=== PATIENT | female | born 1955 | race American Indian/Alaskan Native ===

== ENCOUNTER 2017-02-03 06:00 | Inpatient (IN) | payer BC ==
[2014-06-06 10:35] VITALS: BMI 25.0
[2017-02-03] MEDS ORDERED: Bupivacaine Liposomal Inj 20 ml INFIL ONE (07:26)
[2017-02-03] MEDS ORDERED: Bacitracin 150,000 UNIT in Sodium Chloride 0.9% Irrig 3,000 ML IR SCH (07:30)
[2017-02-03] MEDS ORDERED: Tranexamic Acid 100 mg/ml IV SCH (07:30)
--- NOTE | 2017-02-03 07:30 | CP.PCM.HP ---
History of Present Illness - History of Present Illness History of Present Illness: 61F with right hip DJD failed conservative mgmt and elected for THR. No recent illness, no history of bleeding/clotting disorder/CAD/stents/CVA/TIA PMH: RA, HTN, COPD, restless legs, Vit D def PSH: BTL, appendectomy, toe surgery, tonsil NKDA Present on Admission - Present on Admission Any Indicators Present on Admission: No Review of Systems - Review of Systems All systems: reviewed and no additional remarkable complaints except - Musculoskeletal Musculoskeletal: As Per HPI Past Patient History - Past Medical History & Family History Past Medical History?: Yes Past Family History: Reviewed and not pertinent - Past Social History Smoking Status: Never Smoked - CARDIAC Hx Cardiac Disorders: Yes Hx Hypertension: Yes - PULMONARY Hx Respiratory Disorders: Yes Hx Chronic Obstructive Pulmonary Disease (COPD): Yes Hx Sleep Apnea: Yes (c pap setting 3) - NEUROLOGICAL Hx Neurological Disorder: Yes Other/Comment: restless leg syndrome - MUSCULOSKELETAL/RHEUMATOLOGICAL Hx Musculoskeletal Disorders: Yes Hx Back Pain: Yes Hx Herniated Disk: Yes (lumbar) Hx Rheumatoid Arthritis: Yes - GASTROINTESTINAL Hx Gastrointestinal Disorders: Yes - SURGICAL HISTORY Hx Surgeries: Yes Hx Appendectomy: Yes Hx Tubal Ligation: Yes Other/Comment: removal of toenail bilat great toes - ANESTHESIA Hx Anesthesia: Yes Hx Anesthesia Reactions: No Hx Malignant Hyperthermia: No Has any member of the family had a problem w/ anesthesia?: No Meds Allergies/Adverse Reactions: Allergies Allergy/AdvReac Type Severity Reaction Status Date / Time No Known Allergies Allergy Verified 12/10/13 11:44 Physical Exam - Constitutional Appears: Well, No Acute Distress - Expanded Lower Extremities Exam Right Hip exam: normal inspection Knee exam: full ROM, normal inspection Lower Leg Exam: full ROM, normal inspection Ankle exam: FULL ROM, NORMAL INSPECTION Foot/Toe exam: full ROM (5/5 strength DF/PF/knee flex/ext) Neuro vacular tendon exam: no vascular compromise - Neurological Exam Neurological exam: Alert, Oriented x3 - Psychiatric Exam Psychiatric exam: Normal Affect, Normal Mood - Skin Skin Exam: Dry, Intact, Normal Color, Warm Results - Vital Signs Recent Vital Signs: Last Vital Signs Temp 97.4 F L 02/03/17 06:38 Pulse 63 02/03/17 06:38 Resp 20 02/03/17 06:38 BP 148/85 02/03/17 06:38 Pulse Ox 95 02/03/17 06:38 - Labs Result Diagrams: 02/04/17 11:45 02/04/17 11:45 Assessment & Plan (1) Degenerative joint disease of right hip Assessment and Plan: NPO for THR T&S Status: Acute (2) HTN (hypertension) Status: Chronic (3) COPD (chronic obstructive pulmonary disease) Status: Chronic (4) CAROL (obstructive sleep apnea) Status: Chronic (5) GERD (gastroesophageal reflux disease) Status: Chronic Decision To Admit - Pt Status Changed To: Hospital Disposition Of: Inpatient - Admit Certification Admit to Inpatient:: After my assessment, the patient will require hospitalization for at least two midnights. This is because of the severity of symptoms shown, intensity of services needed, and/or the medical risk in this patient being treated as an outpatient. - InPatient: Physician Admission Certification:: After my assessment, the patient will require hospitalization for at least two midnights. This is because of the severity of symptoms shown, intensity of services needed, and/or the medical risk in this patient being treated as an outpatient. - . Bed Request Type: Regular Admitting Physician: Jv Perez
[2017-02-03] MEDS ORDERED: ceFAZolin IV 2 gm in Dextrose 1 GM/50 ML BAG IVPB ONE (07:43)
[2017-02-03] MEDS ORDERED: Lidocaine 2% w Epi 1:100,000 Inj IJ ONE (07:43)
[2017-02-03] MEDS ORDERED: Midazolam 2 MG/2 ML VIAL ONE (07:50)
[2017-02-03] MEDS ORDERED: Propofol 10 mg/ml Inj (20 ML) ONE (07:51)
[2017-02-03] MEDS ORDERED: Lactated Ringer's 1,000 ML IV ONE ×2 (07:55→10:30)
[2017-02-03] MEDS ORDERED: Rocuronium 10 mg/ml (10 ml) ONE (08:06)
[2017-02-03] MEDS ORDERED: Succinylcholine Chloride 20 mg/ml Syr (5 ml) IV ONE (08:06)
[2017-02-03] MEDS ORDERED: Sodium Chloride 0.9% 60 ML IV ONE (09:16)
[2017-02-03] MEDS ORDERED: ePHEDrine 50 mg/ml Inj ONE (10:11)
[2017-02-03] MEDS ORDERED: Lactated Ringer's 1,000 ML IV SCH (11:30)
[2017-02-03] MEDS ORDERED: Oxycodone/Acetaminophen 5/325 mg Tab PO PRN (11:39)
[2017-02-03] MEDS ORDERED: Bisacodyl 5mg EC Tab PO PRN (11:39)
[2017-02-03] MEDS ORDERED: HYDROmorphone 1 mg/ml ISec IVP PRN (11:39)
[2017-02-03] MEDS ORDERED: TIZANIDINE HCL 6 MG PO PRN (11:44)
[2017-02-03] MEDS ORDERED: Sodium Chloride 0.9% 1,000 ML IV SCH (11:45)
[2017-02-03] MEDS ORDERED: HYDROmorphone 0.5 mg/0.5 ml ISec ONE (11:54)
--- NOTE | 2017-02-03 11:54 | PCM.SURG1 ---
Surgeon's Initial Post Op Note - Surgeon's Notes Surgeon: Sharifa Perez MD Data Administrator: Elton Robertson PA-C Type of Anesthesia: General Endo Anesthesia Administered By: Dr. Maria Pre-Operative Diagnosis: Right hip DJD Operative Findings: biomet metallic implant, press fit Post-Operative Diagnosis: same Operation Performed: Right THR Specimen/Specimens Removed: femoral head Estimated Blood Loss: EBL {In ML}: 250 Blood Products Given: N/A Drains Used: No Drains Post-Op Condition: Fair Date of Surgery/Procedure: 02/03/17 Time of Surgery/Procedure: 11:53
[2017-02-03] MEDS: HYDROmorphone 0.5 mg/0.5 ml ISec IVP PRN ×4 (12:01→13:15)
[2017-02-03] MEDS ORDERED: Sodium Chloride 0.9% 1,000 ML IV ONE ×2 (12:11)
--- NOTE | 2017-02-03 13:26 | RAD ---
PROCEDURE: Right Hip Radiographs. HISTORY: pt in pacu s/p thr COMPARISON: Right hip with pelvis 09/10/2015. FINDINGS: BONES: Patient ostomy status post right shoulder replacement with acetabular and femoral prosthetic components in adequate apparent position. The pelvic ring is intact including the pubic symphysis. No suspicious lytic or blastic change. degenerative changes are mild to moderate at the left hip and bilateral sacroiliac joints. JOINTS: As above. SOFT TISSUES: Phlebolith like calcifications in the inferior left pelvic soft tissues. OTHER FINDINGS: None. IMPRESSION: Status post right total replacement as discussed above. No acute fracture subluxation dislocation or suspicious lytic or blastic change in the right hip or pelvic ring.
[2017-02-03] MEDS ORDERED: HYDROmorphone 0.5 mg/0.5 ml ISec IVP PRN (13:31)
[2017-02-03] MEDS: ceFAZolin IV 2 gm in Dextrose 2 GM/100 ML BAG IVPB SCH (17:00)
--- NOTE | 2017-02-03 20:26 | OP ---
PROCEDURE DATE: 02/03/2017 PREOPERATIVE DIAGNOSIS: Right hip osteoarthritis. POSTOPERATIVE DIAGNOSIS: Right hip osteoarthritis. PROCEDURE: Right total hip arthroplasty. SURGEON: Dr. Perez. MANUGRAPHER: Dr. Perez was assisted by Matt Marc, physician assistant engineer. Ms. Marc was scrubbed and present throughout the entire case and assisted with retraction, reduction of the hip as well as wound closure. TYPE OF ANESTHESIA: General. COMPLICATIONS: None. ESTIMATED BLOOD LOSS: 250 mL. IMPLANT: Biomet dual mobility total hip. INDICATIONS FOR THE PROCEDURE: This is a 61-year-old female who presented with complaints of right groin pain. Clinical examination was consistent with some pain with passive internal and external rotation of the hip, some pain resisted hip flexion, mild limb length discrepancy. Radiographic examination was consisted of advanced degenerative joint disease. After a period of failed nonsurgical management, recommendation was made for right total hip arthroplasty. The risks, benefits and alternatives of the procedure were discussed with the patient and informed consent was obtained. DESCRIPTION OF PROCEDURE: After the surgical site was finally verified in the preoperative holding area, the patient was taken to the operating room and placed supine on the operating table. After administration of general anesthesia, the patient received 2 g of Ancef IV. Ramirez catheter was inserted. VA9 boot was placed on the nonoperative extremity. The patient was placed in lateral decubitus position with right hip up towards the ceiling. Care was taken to make sure all bony prominences and nerves were well padded and protected. Axillary roll was placed in the left axilla, and the right lower extremity was prepped and draped in usual sterile fashion. The bony landmarks were identified about the right hip and approximately 12 cm curvilinear incision was made over the proximal femur. Soft tissues were dissected sharply down to the fascia. The fascia was incised and Charnley retractor was placed. Short external rotators were identified, tagged, and resected off of proximal femur. T-type capsulotomy was performed and the hip was dislocated. Based on preoperative templating, a femoral neck resection was performed and the femoral head was removed. At this point, an anterior capsulotomy was performed and the acetabulum was exposed. Acetabulum was then reamed sequentially to allow for 52 mm Pressfit cup. Care was taken to maintain proper acetabular height and version. A trial cup was inserted and satisfied with the position. Trial was removed and the hip joint was pulse lavaged with antibiotic saline solution. The bony surfaces were dried and the actual cup was then impacted to the place. The cup was further fixed using 2 screws in posterior-superior quadrant. At this point, a trial liner was inserted and attention directed to the proximal femur. The medullary canal of the proximal femur was reamed and broached sequentially to allow for 12 mm Pressfit collarless stent. with the trial stem in place, the trial neck and head was placed and hip was reduced. Hip was taken through range of motion, was noted to be stable with approximately equal limb length. At this point, all the trial components were removed and the hip joint was pulse lavaged. The actual bearing was then inserted and the actual stem was then inserted again making sure to maintain the proper version. The actual head was then impacted over the stem and the hip was reduced. Again, the hip was taken through range of motion and was noted to be stable with approximately equal limb lengths. At this point, the hip joint was again pulse lavaged and using #1 Vicryl suture. The short external rotator was also repaired using #1 Vicryl suture. The deep fascia was closed using #1 Vicryl suture. The subcutaneous tissue was closed using 0 Vicryl and 2-0 Vicryl suture and the skin was closed using abisai. A sterile dressing was applied and abduction pillow was placed. The patient was awakened, transferred supine, and taken to the recovery room in stable condition. Jv Perez MD
[2017-02-04] MEDS: ceFAZolin IV 2 gm in Dextrose 2 GM/100 ML BAG IVPB SCH (00:33)
[2017-02-04] MEDS ORDERED: Fluticasone-Salmeterol 250-50mcg Diskus IH SCH (08:00)
[2017-02-04] MEDS ORDERED: Enoxaparin 40 mg Syringe SC SCH (10:00)
[2017-02-04] MEDS: Pantoprazole 40 mg EC Tab PO SCH (10:27)
[2017-02-04] MEDS: Potassium Chloride 10 mEq ER Tab PO SCH (10:27)
--- NOTE | 2017-02-04 11:00 | CP.PCM.PN ---
Subjective - Date & Time of Evaluation Date of Evaluation: 02/04/17 Time of Evaluation: 10:59 - Subjective Subjective: Pt awake, alert. Pt sitting in chair. Afebrile R hip: dressing intact NVI distally POD#1 Labs pending DVT prophylaxis D/c planning Objective - Vital Signs/Intake and Output Vital Signs (last 24 hours): Temp Pulse Resp BP Pulse Ox 98.8 F 80 18 127/71 98 02/04/17 07:25 02/04/17 07:25 02/04/17 07:25 02/04/17 10:26 02/04/17 07:25 Intake and Output: 02/04/17 02/04/17 06:59 18:59 Intake Total 1510 Output Total 1000 Balance 510 - Medications Medications: Current Medications Acetaminophen (Tylenol 325mg Tab) 650 mg PO Q4 PRN PRN Reason: Fever 101 degrees fahrenheit Bisacodyl (Dulcolax) 10 mg PO HS PRN PRN Reason: Constipation Clonidine HCl (Catapres) 0.1 mg PO TID [facility] Last Admin: 02/04/17 10:27 Dose: 0.1 mg Docusate Sodium (Colace) 100 mg PO BID [facility] Last Admin: 02/04/17 10:26 Dose: 100 mg Enoxaparin Sodium (Lovenox) 40 mg SC DAILY [facility] Last Admin: 02/04/17 10:25 Dose: 40 mg Ergocalciferol (Drisdol 50,000 Intl Units Cap) 1 cap PO QWK [facility] Folic Acid (Folic Acid) 1 mg PO DAILY [facility] Last Admin: 02/04/17 10:27 Dose: 1 mg Furosemide (Lasix) 40 mg PO DAILY [facility] Last Admin: 02/04/17 10:26 Dose: 40 mg Hydromorphone HCl (Dilaudid) 1 mg IVP Q3H PRN PRN Reason: Pain, severe (8-10) Last Admin: 02/04/17 10:11 Dose: 1 mg Lactated Ringer's (Lactated Ringer's) 1,000 mls @ 100 mls/hr IV .Q10H [facility] Sodium Chloride (Sodium Chloride 0.9%) 1,000 mls @ 70 mls/hr IV .[id number] [facility] Last Admin: 02/04/17 01:35 Dose: 70 mls/hr Losartan Potassium (Cozaar) 100 mg PO DAILY [facility] Last Admin: 02/04/17 10:26 Dose: 100 mg Ondansetron HCl (Zofran Inj) 4 mg IVP Q6H PRN PRN Reason: Nausea/Vomiting Oxycodone/Acetaminophen (Percocet 5/325 Mg Tab) 2 tab PO Q4H PRN PRN Reason: Pain, moderate (4-7) Stop: 02/06/17 11:40 Pantoprazole Sodium (Protonix Ec Tab) 40 mg PO DAILY [facility] Last Admin: 02/04/17 10:27 Dose: 40 mg Potassium Chloride (Klor-Con 10) 10 meq PO DAILY [facility] Last Admin: 02/04/17 10:27 Dose: 10 meq Pramipexole Dihydrochloride (Mirapex) 0.25 mg PO TID [facility] Pregabalin (Lyrica) 75 mg PO TID [facility] Last Admin: 02/04/17 10:26 Dose: 75 mg Fluticasone/Salmeterol (Advair Diskus 250/50) 1 puff IH RBID [facility]
[2017-02-04 11:55] LABS: HEMATOCRIT 31.3 % (34.0-47.0); MEAN CELL VOLUME 90.3 fL (81.0-99.0); MEAN CORPUSCULAR HEMOGLOBIN 30.3 pg (27.0-31.0); MEAN CORPUSCULAR HGB CONC 33.5 g/dL (33.0-37.0); MEAN PLATELET VOLUME 10.2 fL (7.2-11.7); RED CELL DISTRIBUTION WIDTH 13.3 % (11.5-14.5)
[2017-02-04 12:04] LABS: WHITE BLOOD COUNT 17.9 K/uL (4.8-10.8)
[2017-02-04 12:27] LABS: CHLORIDE 100 mmol/L (98-107); POTASSIUM 3.5 mmol/L (3.6-5.2); SODIUM 135 mmol/L (132-148)
[2017-02-04 12:30] LABS: CARBON DIOXIDE 25 mmol/L (22-30); GFR AFRICAN-AMERICAN > 60
[2017-02-04 12:31] LABS: BLOOD UREA NITROGEN 10 mg/dL (7-17); CALCIUM 8.5 mg/dl (8.6-10.4); GLUCOSE,RANDOM 113 mg/dL (65-105)
--- NOTE | 2017-02-04 14:40 | CP.PCM.PN ---
Subjective - Date & Time of Evaluation Date of Evaluation: 02/04/17 Time of Evaluation: 14:36 - Subjective Subjective: Patient states she is comfortable. Little appetite. She refuses rehab and requests home with services. Patient has 8 stairs into home and lives with sig other. Denies CP/SOB/dizziness/n/v/numbness/tingling. Objective - Vital Signs/Intake and Output Vital Signs (last 24 hours): Temp Pulse Resp BP Pulse Ox 98.8 F 79 18 127/71 100 02/04/17 07:25 02/04/17 11:48 02/04/17 07:25 02/04/17 10:26 02/04/17 11:48 Intake and Output: 02/04/17 02/04/17 06:59 18:59 Intake Total 1510 Output Total 1000 Balance 510 - Medications Medications: Current Medications Acetaminophen (Tylenol 325mg Tab) 650 mg PO Q4 PRN PRN Reason: Fever 101 degrees fahrenheit Bisacodyl (Dulcolax) 10 mg PO HS PRN PRN Reason: Constipation Clonidine HCl (Catapres) 0.1 mg PO TID [facility] Last Admin: 02/04/17 10:27 Dose: 0.1 mg Docusate Sodium (Colace) 100 mg PO BID [facility] Last Admin: 02/04/17 10:26 Dose: 100 mg Enoxaparin Sodium (Lovenox) 40 mg SC DAILY [facility] Last Admin: 02/04/17 10:25 Dose: 40 mg Ergocalciferol (Drisdol 50,000 Intl Units Cap) 1 cap PO QWK [facility] Folic Acid (Folic Acid) 1 mg PO DAILY [facility] Last Admin: 02/04/17 10:27 Dose: 1 mg Furosemide (Lasix) 40 mg PO DAILY [facility] Last Admin: 02/04/17 10:26 Dose: 40 mg Hydromorphone HCl (Dilaudid) 1 mg IVP Q3H PRN PRN Reason: Pain, severe (8-10) Last Admin: 02/04/17 10:11 Dose: 1 mg Losartan Potassium (Cozaar) 100 mg PO DAILY [facility] Last Admin: 02/04/17 10:26 Dose: 100 mg Ondansetron HCl (Zofran Inj) 4 mg IVP Q6H PRN PRN Reason: Nausea/Vomiting Oxycodone/Acetaminophen (Percocet 5/325 Mg Tab) 2 tab PO Q4H PRN PRN Reason: Pain, moderate (4-7) Stop: 02/06/17 11:40 Pantoprazole Sodium (Protonix Ec Tab) 40 mg PO DAILY [facility] Last Admin: 02/04/17 10:27 Dose: 40 mg Potassium Chloride (Klor-Con 10) 10 meq PO DAILY [facility] Last Admin: 02/04/17 10:27 Dose: 10 meq Pramipexole Dihydrochloride (Mirapex) 0.25 mg PO TID [facility] Pregabalin (Lyrica) 75 mg PO TID [facility] Last Admin: 02/04/17 10:26 Dose: 75 mg Fluticasone/Salmeterol (Advair Diskus 250/50) 1 puff IH RBID [facility] - Labs Labs: 02/04/17 11:45 02/04/17 11:45 - Constitutional Appears: Well, No Acute Distress - Extremities Exam Extremities Exam: Full ROM Additional comments: calves soft NT neg homans dressing intact no visible drainage sensation intact RLE +venodynes +hip abduction pillow - Neurological Exam Neurological Exam: Awake, Oriented x3 Neuro motor strength exam: Right Lower Extremity: 5 Additional comments: patient drowsy, easily awakened but falls back to sleep immediately - Psychiatric Exam Psychiatric exam: Normal Affect, Normal Mood - Skin Skin Exam: Dry, Intact, Normal Color, Warm Assessment and Plan (1) Degenerative joint disease of right hip Assessment & Plan: POD#1 s/p R THR -PT/OT -elevated WBC, check am labs, afeb -monitor h/h -d/c planning to home with home PT -VTE proph -will decrease dilaudid due to sedation, continue percocet breakthrough -d/w Dr. Perez, agrees with above Status: Acute (2) HTN (hypertension) Assessment & Plan: cont home meds medical consult Dr. Ziegler Status: Chronic (3) COPD (chronic obstructive pulmonary disease) Status: Chronic (4) CAROL (obstructive sleep apnea) Status: Chronic (5) GERD (gastroesophageal reflux disease) Status: Chronic
[2017-02-05 06:42] LABS: HEMATOCRIT 29.7 % (34.0-47.0); MEAN CORPUSCULAR HGB CONC 34.5 g/dL (33.0-37.0); MEAN PLATELET VOLUME 10.6 fL (7.2-11.7); RED CELL DISTRIBUTION WIDTH 13.2 % (11.5-14.5); WHITE BLOOD COUNT 20.9 K/uL (4.8-10.8)
[2017-02-05 07:54] LABS: CHLORIDE 105 mmol/L (98-107); POTASSIUM 3.6 mmol/L (3.6-5.2); SODIUM 137 mmol/L (132-148)
[2017-02-05 07:57] LABS: BLOOD UREA NITROGEN 13 mg/dL (7-17); CALCIUM 8.9 mg/dl (8.6-10.4); CARBON DIOXIDE 23 mmol/L (22-30); GFR AFRICAN-AMERICAN > 60; GLUCOSE,RANDOM 100 mg/dL (65-105)
[2017-02-05] MEDS ORDERED: ceFAZolin IV 1 gm in Dextrose 1 GM/50 ML BAG IVPB SCH (08:00)
--- NOTE | 2017-02-05 08:00 | CP.PCM.PN ---
Subjective - Date & Time of Evaluation Date of Evaluation: 02/05/17 Time of Evaluation: 07:57 - Subjective Subjective: Pt awake, alert. T max 101 R hip: dressing changed clean and dry NVI distally Hg 10.3 WBC 20.9 POD#2 Will send blood and urine cultures CXR hold off on d/c today cont PT Objective - Vital Signs/Intake and Output Vital Signs (last 24 hours): Temp Pulse Resp BP Pulse Ox 98.8 F 83 20 119/72 95 02/05/17 01:16 02/04/17 23:15 02/04/17 23:15 02/04/17 23:15 02/04/17 23:15 Intake and Output: 02/05/17 02/05/17 06:59 18:59 Intake Total 150 Balance 150 - Medications Medications: Current Medications Acetaminophen (Tylenol 325mg Tab) 650 mg PO Q4 PRN PRN Reason: Fever 101 degrees fahrenheit Last Admin: 02/05/17 00:16 Dose: 650 mg Apixaban (Eliquis) 2.5 mg PO Q12H [facility] Bisacodyl (Dulcolax) 10 mg PO HS PRN PRN Reason: Constipation Clonidine HCl (Catapres) 0.1 mg PO TID [facility] Last Admin: 02/04/17 17:59 Dose: Not Given Docusate Sodium (Colace) 100 mg PO BID [facility] Last Admin: 02/04/17 18:45 Dose: Not Given Ergocalciferol (Drisdol 50,000 Intl Units Cap) 1 cap PO QWK [facility] Folic Acid (Folic Acid) 1 mg PO DAILY [facility] Last Admin: 02/04/17 10:27 Dose: 1 mg Furosemide (Lasix) 40 mg PO DAILY [facility] Last Admin: 02/04/17 10:26 Dose: 40 mg Hydromorphone HCl (Dilaudid) 0.5 mg IVP Q3H PRN PRN Reason: Pain, severe (8-10) Losartan Potassium (Cozaar) 100 mg PO DAILY [facility] Last Admin: 02/04/17 10:26 Dose: 100 mg Ondansetron HCl (Zofran Inj) 4 mg IVP Q6H PRN PRN Reason: Nausea/Vomiting Oxycodone/Acetaminophen (Percocet 5/325 Mg Tab) 2 tab PO Q4H PRN PRN Reason: Pain, moderate (4-7) Stop: 02/06/17 11:40 Pantoprazole Sodium (Protonix Ec Tab) 40 mg PO DAILY [facility] Last Admin: 02/04/17 10:27 Dose: 40 mg Potassium Chloride (Klor-Con 10) 10 meq PO DAILY [facility] Last Admin: 02/04/17 10:27 Dose: 10 meq Pramipexole Dihydrochloride (Mirapex) 0.25 mg PO TID [facility] Last Admin: 02/04/17 18:45 Dose: Not Given Pregabalin (Lyrica) 75 mg PO TID [facility] Last Admin: 02/04/17 18:45 Dose: Not Given Fluticasone/Salmeterol (Advair Diskus 250/50) 1 puff IH RBID [facility] - Labs Labs: 02/05/17 06:20 02/05/17 06:20
[2017-02-05] MEDS: HYDROmorphone 0.5 mg/0.5 ml ISec IVP PRN ×2 (09:09→16:55)
--- NOTE | 2017-02-05 10:02 | RAD ---
HISTORY: leukocytosis COMPARISON: 01/07/2017 TECHNIQUE: Chest PA and lateral FINDINGS: LUNGS: Interval linear and patchy opacity -left lung base -consider interval developing infiltrate PLEURA: No significant pleural effusion identified. No pneumothorax apparent. CARDIOVASCULAR: Normal. OSSEOUS STRUCTURES: No significant abnormalities. VISUALIZED UPPER ABDOMEN: Normal. OTHER FINDINGS: None. IMPRESSION: Possible developing patchy infiltrate left lung base - at minimum, linear discoid atelectasis and/ or scarring components here suggested.
--- NOTE | 2017-02-05 10:04 | PN ---
DATE: 02/04/2017 SUBJECTIVE: Patient is seen today on 02/04/2017. She is not in any cardiopulmonary distress. Patient still has pain and she is on pain management as per Orthopedic. PHYSICAL EXAMINATION: VITAL SIGNS: Blood pressure is 96/61, temperature 98.4, respiratory rate 20, and pulse 65. HEENT: Pupils equal and reactive to light. Normal appearing mucosa of the conjunctivae, oropharynx and nasal membrane mucosa. NECK: Supple. No JVD. No carotid bruit. No lymph node. No thyromegaly. CHEST AND LUNGS: Bilateral symmetrical expansion. Good air exchange. No rales. No rhonchi. CARDIOVASCULAR SYSTEM: PMI not localized. S1 and S2. No additional sounds. ABDOMEN: Normoactive bowel sounds. No tenderness. No organomegaly. No masses. EXTREMITIES: No cyanosis. No clubbing. No edema. CENTRAL NERVOUS SYSTEM: Alert, awake, and oriented x3. No neurological deficits could be appreciated. ASSESSMENT: Postoperative day #1, status post right total hip replacement, hypertension, osteoarthritis, history of rheumatoid arthritis. PLAN: Continue current medications and DVT prophylaxis will be started once cleared by Surgery. Physical therapy and patient is desiring to go home for rehabilitation. Reagan Ziegler MD
[2017-02-05] MEDS: Potassium Chloride 10 mEq ER Tab PO SCH (10:13)
[2017-02-05] MEDS: Pantoprazole 40 mg EC Tab PO SCH (10:15)
--- NOTE | 2017-02-05 10:15 | CON ---
DATE: HISTORY OF PRESENT ILLNESS: This is a 61 years old -[place] female with history of multiple medical problems, underwent right total hip replacement. Patient was seen postoperatively. Medical consultation was called for medical management and medical followup. Patient denied to have any chest pain or shortness of breath. No respiratory distress. ALLERGIES: No known allergies. HOME MEDICATIONS: Include Lyrica, methotrexate, folic acid, Nexium, clonidine, Mirapex, Cozaar, Lasix, Zanaflex. PAST MEDICAL HISTORY: Hypertension, rheumatoid arthritis, gastritis/gastroesophageal reflux disease. FAMILY HISTORY: Noncontributory. SOCIAL HISTORY: Denies smoking, EtOH or substance abuse. REVIEW OF SYSTEMS: All other review of systems is negative. PHYSICAL EXAMINATION: GENERAL: Patient is in bed, comfortable, not in any cardiopulmonary distress. VITAL SIGNS: Blood pressure 114/76, temperature 97.1, respiratory rate 20 and pulse 66. HEENT: Pupils equal and reactive to light. Normal-appearing mucosa of the conjunctivae, oropharynx and nasal membrane mucosa. NECK: Supple. No JVD. No carotid bruit. No lymph node. No thyromegaly. CHEST AND LUNGS: Bilaterally symmetrical expansion. Good air exchange. No rales. No rhonchi. CARDIOVASCULAR SYSTEM: PMI not localized. S1 and S2. No additional sounds. ABDOMEN: Normoactive bowel sounds. No tenderness. No organomegaly. No masses. EXTREMITIES: No cyanosis. No clubbing. No edema. CENTRAL NERVOUS SYSTEM: Alert, awake, and oriented x2. No neurological deficits could be appreciated. ASSESSMENT: 1. Postoperative, status post right total hip replacement. 2. History of rheumatoid arthritis. 3. Hypertension. PLAN: Resume patient's home medications and DVT prophylaxis as per Orthopedics. We will monitor electrolytes and blood count and we will follow up with you. Reagan Ziegler MD
[2017-02-05] MEDS: Piperacillin/Tazobact 3.375 GM in Sodium Chloride 100 ML IVPB SCH ×2 (14:02→17:55)
[2017-02-05 17:09] LABS: RBC URINE 5 /hpf (0-3); TRANSITIONAL EPITHIAL < 1 /hpf (0-3); URINE BACTERIA OCC (<OCC); URINE BILIRUBIN NEGATIVE (NEGATIVE); URINE COLOR Yellow (YELLOW); URINE GLUCOSE (UA) NORMAL (Normal); URINE KETONE TRACE mg/dL (NEGATIVE); URINE LEUKOCYTE ESTERASE 3+ Leu/uL (Negative); URINE PROTEIN NEGATIVE (NEGATIVE); URINE UROBILINOGEN NORMAL mg/dL (0.2-1.0); WBC URINE 35 /hpf (0-5)
[2017-02-05 17:28] LABS: URINE BLOOD 1+ (NEGATIVE)
--- NOTE | 2017-02-05 17:59 | CP.PCM.PN ---
Subjective - Date & Time of Evaluation Date of Evaluation: 02/05/17 (patient stable no issues) Time of Evaluation: 18:00 - Subjective Subjective: Stable vitals, no nausea, no recall uneventful anesthesia. Pain management by otho Objective - Vital Signs/Intake and Output Vital Signs (last 24 hours): Temp Pulse Resp BP Pulse Ox 100.2 F H 89 20 116/71 96 02/05/17 15:00 02/05/17 15:00 02/05/17 15:00 02/05/17 15:00 02/05/17 15:00 Intake and Output: 02/05/17 02/05/17 06:59 18:59 Intake Total 150 550 Balance 150 550 - Medications Medications: Current Medications Acetaminophen (Tylenol 325mg Tab) 650 mg PO Q4 PRN PRN Reason: Fever 101 degrees fahrenheit Last Admin: 02/05/17 00:16 Dose: 650 mg Apixaban (Eliquis) 2.5 mg PO Q12H [facility] Last Admin: 02/05/17 11:00 Dose: 2.5 mg Bisacodyl (Dulcolax) 10 mg PO HS PRN PRN Reason: Constipation Clonidine HCl (Catapres) 0.1 mg PO TID [facility] Last Admin: 02/05/17 14:09 Dose: Not Given Docusate Sodium (Colace) 100 mg PO BID [facility] Last Admin: 02/05/17 17:56 Dose: 100 mg Ergocalciferol (Drisdol 50,000 Intl Units Cap) 1 cap PO QWK [facility] Folic Acid (Folic Acid) 1 mg PO DAILY [facility] Last Admin: 02/05/17 10:15 Dose: 1 mg Furosemide (Lasix) 40 mg PO DAILY [facility] Last Admin: 02/05/17 10:13 Dose: 40 mg Hydromorphone HCl (Dilaudid) 0.5 mg IVP Q3H PRN PRN Reason: Pain, severe (8-10) Last Admin: 02/05/17 16:55 Dose: 0.5 mg Piperacillin Sod/Tazobactam (Sod 3.375 gm/ Sodium Chloride) 100 mls @ 100 mls/ hr IVPB Q6H [facility] Last Admin: 02/05/17 17:55 Dose: 100 mls/hr Losartan Potassium (Cozaar) 100 mg PO DAILY [facility] Last Admin: 02/05/17 10:15 Dose: 100 mg Ondansetron HCl (Zofran Inj) 4 mg IVP Q6H PRN PRN Reason: Nausea/Vomiting Oxycodone/Acetaminophen (Percocet 5/325 Mg Tab) 2 tab PO Q4H PRN PRN Reason: Pain, moderate (4-7) Stop: 02/06/17 11:40 Pantoprazole Sodium (Protonix Ec Tab) 40 mg PO DAILY [facility] Last Admin: 02/05/17 10:15 Dose: 40 mg Potassium Chloride (Klor-Con 10) 10 meq PO DAILY [facility] Last Admin: 02/05/17 10:13 Dose: 10 meq Pramipexole Dihydrochloride (Mirapex) 0.25 mg PO TID [facility] Last Admin: 02/05/17 17:57 Dose: 0.25 mg Pregabalin (Lyrica) 75 mg PO TID [facility] Last Admin: 02/05/17 17:56 Dose: 75 mg Fluticasone/Salmeterol (Advair Diskus 250/50) 1 puff IH RBID [facility] - Labs Labs: 02/05/17 06:20 02/05/17 06:20
[2017-02-06] MEDS: Piperacillin/Tazobact 3.375 GM in Sodium Chloride 100 ML IVPB SCH ×4 (00:19→18:07)
--- NOTE | 2017-02-06 02:03 | PN ---
DAILY PROGRESS NOTE DATE: 02/05/2017 SUBJECTIVE: The patient is seen today. She still has pain on the right hip surgery area. The patient has mild fever with temperature of 100.3 and a chest x ray showed possible developing left lower lobe infiltrate. The patient also was found to have leukocytosis as it went up from 17,000 to 20,000. PHYSICAL EXAMINATION: VITAL SIGNS: Blood pressure is 109/59, temperature 100.3, respiratory rate 20 and pulse is 89. HEENT: Pupils equal, reactive to light. Normal appearing mucosa of the conjunctivae, oropharynx and nasal membrane mucosa. NECK: Supple. No JVD. No carotid bruit. No lymph node. No thyromegaly. CHEST AND LUNGS: Bilateral symmetrical expansion. Good air exchange. No rales. No rhonchi. CARDIOVASCULAR SYSTEM: PMI not localized. S1 and S2. No additional sounds. ABDOMEN: Normoactive bowel sounds. No tenderness. No organomegaly. No masses. EXTREMITIES: No cyanosis. No clubbing. No edema. CENTRAL NERVOUS SYSTEM: Alert, awake, and oriented x2. No neurological deficits could be appreciated. ASSESSMENT: 1. Developing left lower lobe infiltrate. 2. Postoperative day #2, status post right total hip replacement. 3. Hypertension. PLAN: Stop Ancef and we will start the patient on Zosyn 3.375 gram q. 6 hours. Reagan Ziegler MD
[2017-02-06] MEDS: HYDROmorphone 0.5 mg/0.5 ml ISec IVP PRN (05:01)
[2017-02-06 06:38] LABS: BASO % 0.2 % (0.0-2.0); EOS # 0.1 K/uL (0.0-0.7); EOS % 0.6 % (0.0-4.0); HEMATOCRIT 25.4 % (34.0-47.0); LYMPH # 1.2 K/uL (1.0-4.3); LYMPH % 7.3 % (20.0-40.0); MEAN CORPUSCULAR HEMOGLOBIN 30.7 pg (27.0-31.0); MEAN CORPUSCULAR HGB CONC 34.4 g/dL (33.0-37.0); MEAN PLATELET VOLUME 9.7 fL (7.2-11.7); MONO # 1.2 K/uL (0.0-0.8); PLATELET COUNT 203 K/uL (130-400); RED CELL DISTRIBUTION WIDTH 13.2 % (11.5-14.5); WHITE BLOOD COUNT 16.7 K/uL (4.8-10.8)
[2017-02-06 07:16] LABS: CHLORIDE 102 mmol/L (98-107); POTASSIUM 3.3 mmol/L (3.6-5.2); SODIUM 136 mmol/L (132-148)
[2017-02-06 07:19] LABS: CARBON DIOXIDE 25 mmol/L (22-30); GFR AFRICAN-AMERICAN > 60
[2017-02-06 07:20] LABS: BLOOD UREA NITROGEN 13 mg/dL (7-17); CALCIUM 8.3 mg/dl (8.6-10.4); GLUCOSE,RANDOM 115 mg/dL (65-105)
[2017-02-06] MEDS ORDERED: Potassium Chloride 20 mEq ER Tab PO ONE (07:58)
[2017-02-06 08:44] LABS: GIANT PLATELETS PRESENT; NEUTROPHIL 90 % (50-75); TOTAL CELLS COUNTED 100
[2017-02-06] MEDS: Potassium Chloride 10 mEq ER Tab PO SCH (09:54)
[2017-02-06] MEDS: Pantoprazole 40 mg EC Tab PO SCH (09:54)
--- NOTE | 2017-02-06 10:18 | CP.PCM.PN ---
Subjective - Date & Time of Evaluation Date of Evaluation: 02/06/17 Time of Evaluation: 10:13 - Subjective Subjective: Patient states she is feeling much better today. She says that pain is controlled, and she felt a little dizzy with PT, but is better now. Objective - Vital Signs/Intake and Output Vital Signs (last 24 hours): Temp Pulse Resp BP Pulse Ox 98.1 F 72 18 99/52 L 96 02/06/17 07:20 02/06/17 07:20 02/06/17 07:20 02/06/17 09:55 02/06/17 07:20 Intake and Output: 02/06/17 02/06/17 06:59 18:59 Intake Total 658 Balance 658 - Medications Medications: Current Medications Acetaminophen (Tylenol 325mg Tab) 650 mg PO Q4 PRN PRN Reason: Fever 101 degrees fahrenheit Last Admin: 02/05/17 00:16 Dose: 650 mg Apixaban (Eliquis) 2.5 mg PO Q12H [facility] Last Admin: 02/06/17 09:53 Dose: 2.5 mg Bisacodyl (Dulcolax) 10 mg PO HS PRN PRN Reason: Constipation Clonidine HCl (Catapres) 0.1 mg PO TID [facility] Last Admin: 02/06/17 09:55 Dose: Not Given Docusate Sodium (Colace) 100 mg PO BID [facility] Last Admin: 02/06/17 09:53 Dose: 100 mg Ergocalciferol (Drisdol 50,000 Intl Units Cap) 1 cap PO QWK [facility] Folic Acid (Folic Acid) 1 mg PO DAILY [facility] Last Admin: 02/06/17 09:54 Dose: 1 mg Furosemide (Lasix) 40 mg PO DAILY [facility] Last Admin: 02/06/17 09:55 Dose: Not Given Piperacillin Sod/Tazobactam (Sod 3.375 gm/ Sodium Chloride) 100 mls @ 100 mls/ hr IVPB Q6H [facility] Last Admin: 02/06/17 05:41 Dose: 100 mls/hr Losartan Potassium (Cozaar) 100 mg PO DAILY [facility] Last Admin: 02/06/17 09:55 Dose: Not Given Ondansetron HCl (Zofran Inj) 4 mg IVP Q6H PRN PRN Reason: Nausea/Vomiting Oxycodone/Acetaminophen (Percocet 5/325 Mg Tab) 2 tab PO Q4H PRN PRN Reason: Pain, moderate (4-7) Stop: 02/06/17 11:40 Last Admin: 02/06/17 05:59 Dose: 2 tab Pantoprazole Sodium (Protonix Ec Tab) 40 mg PO DAILY [facility] Last Admin: 02/06/17 09:54 Dose: 40 mg Potassium Chloride (Klor-Con 10) 10 meq PO DAILY [facility] Last Admin: 02/06/17 09:54 Dose: 10 meq Pramipexole Dihydrochloride (Mirapex) 0.25 mg PO TID [facility] Last Admin: 02/06/17 09:56 Dose: 0.25 mg Pregabalin (Lyrica) 75 mg PO TID [facility] Last Admin: 02/06/17 09:52 Dose: 75 mg Fluticasone/Salmeterol (Advair Diskus 250/50) 1 puff IH RBID [facility] - Labs Labs: 02/06/17 06:30 02/06/17 06:30 - Constitutional Appears: Well, No Acute Distress - Extremities Exam Additional comments: incision clean/dry/no erythema +ROM ankle/toes sensation intact +DP/PT pulses calves soft NT neg homans Assessment and Plan (1) Degenerative joint disease of right hip Assessment & Plan: POD#3 s/p right THR -WBC lower today -UTI noted on u/a, ?developing LLL infiltrate, on zosyn -f/u blood cx, urine cx -plan for d/c to home 02/07 if continues to improve and cx negative -home PT -cont VTE proph with vannessa -d/w Dr. Perez, agrees with above Status: Acute (2) HTN (hypertension) Assessment & Plan: antihypertensives held today due to bp Status: Chronic (3) COPD (chronic obstructive pulmonary disease) Status: Chronic (4) CAROL (obstructive sleep apnea) Status: Chronic (5) GERD (gastroesophageal reflux disease) Status: Chronic (6) UTI (urinary tract infection) Assessment & Plan: on zosyn, f/u cx Status: Acute
[2017-02-07] MEDS: Piperacillin/Tazobact 3.375 GM in Sodium Chloride 100 ML IVPB SCH ×4 (00:37→17:46)
[2017-02-07 08:02] LABS: BASO % 0.3 % (0.0-2.0); EOS # 0.5 K/uL (0.0-0.7); EOS % 5.2 % (0.0-4.0); HEMATOCRIT 26.1 % (34.0-47.0); LYMPH # 1.6 K/uL (1.0-4.3); LYMPH % 15.8 % (20.0-40.0); MEAN CELL VOLUME 89.9 fL (81.0-99.0); MEAN CORPUSCULAR HEMOGLOBIN 30.7 pg (27.0-31.0); MEAN CORPUSCULAR HGB CONC 34.2 g/dL (33.0-37.0); MEAN PLATELET VOLUME 9.7 fL (7.2-11.7); MONO # 0.9 K/uL (0.0-0.8); MONO % 8.3 % (0.0-10.0); RED CELL DISTRIBUTION WIDTH 13.6 % (11.5-14.5); WHITE BLOOD COUNT 10.3 K/uL (4.8-10.8)
[2017-02-07 08:27] LABS: CHLORIDE 100 mmol/L (98-107); POTASSIUM 3.8 mmol/L (3.6-5.2); SODIUM 135 mmol/L (132-148)
[2017-02-07 08:29] LABS: GFR AFRICAN-AMERICAN > 60
[2017-02-07 08:30] LABS: BLOOD UREA NITROGEN 15 mg/dL (7-17); CARBON DIOXIDE 27 mmol/L (22-30); GLUCOSE,RANDOM 107 mg/dL (65-105)
[2017-02-07 08:31] LABS: CALCIUM 8.7 mg/dl (8.6-10.4)
[2017-02-07] MEDS: Potassium Chloride 10 mEq ER Tab PO SCH (09:45)
[2017-02-07] MEDS: Pantoprazole 40 mg EC Tab PO SCH (09:46)
--- NOTE | 2017-02-07 16:20 | CP.PCM.PN ---
Subjective - Date & Time of Evaluation Date of Evaluation: 02/07/17 Time of Evaluation: 16:18 - Subjective Subjective: Pt doing well. Adequate pain control. Afebrile,VSS R hip: dressing clean and intact NVI distally Abduction pillow in place WBC 10 POD#4 Pt to have 2 more days of IV antibiotics for pneumonia. Plan will be to d/c pt home Thursday with PO antibiotics cont PT, Eliquis Objective - Vital Signs/Intake and Output Vital Signs (last 24 hours): Temp Pulse Resp BP Pulse Ox 98.6 F 62 20 103/99 H 99 02/07/17 15:08 02/07/17 15:08 02/07/17 15:08 02/07/17 15:08 02/07/17 15:08 Intake and Output: 02/07/17 02/07/17 06:59 18:59 Intake Total 500 Balance 500 - Medications Medications: Current Medications Acetaminophen (Tylenol 325mg Tab) 650 mg PO Q4 PRN PRN Reason: Fever 101 degrees fahrenheit Last Admin: 02/05/17 00:16 Dose: 650 mg Apixaban (Eliquis) 2.5 mg PO Q12H [facility] Last Admin: 02/07/17 09:46 Dose: 2.5 mg Bisacodyl (Dulcolax) 10 mg PO HS PRN PRN Reason: Constipation Clonidine HCl (Catapres) 0.1 mg PO TID [facility] Last Admin: 02/07/17 13:33 Dose: Not Given Docusate Sodium (Colace) 100 mg PO BID [facility] Last Admin: 02/07/17 09:45 Dose: 100 mg Ergocalciferol (Drisdol 50,000 Intl Units Cap) 1 cap PO QWK [facility] Folic Acid (Folic Acid) 1 mg PO DAILY [facility] Last Admin: 02/07/17 09:45 Dose: 1 mg Furosemide (Lasix) 40 mg PO DAILY [facility] Last Admin: 02/07/17 09:46 Dose: 40 mg Piperacillin Sod/Tazobactam (Sod 3.375 gm/ Sodium Chloride) 100 mls @ 100 mls/ hr IVPB Q6H [facility] Last Admin: 02/07/17 13:00 Dose: 100 mls/hr Losartan Potassium (Cozaar) 100 mg PO DAILY [facility] Last Admin: 02/07/17 09:46 Dose: 100 mg Ondansetron HCl (Zofran Inj) 4 mg IVP Q6H PRN PRN Reason: Nausea/Vomiting Pantoprazole Sodium (Protonix Ec Tab) 40 mg PO DAILY [facility] Last Admin: 02/07/17 09:46 Dose: 40 mg Potassium Chloride (Klor-Con 10) 10 meq PO DAILY [facility] Last Admin: 02/07/17 09:45 Dose: 10 meq Pramipexole Dihydrochloride (Mirapex) 0.25 mg PO TID [facility] Last Admin: 02/07/17 13:31 Dose: 0.25 mg Pregabalin (Lyrica) 75 mg PO TID [facility] Last Admin: 02/07/17 13:31 Dose: 75 mg Fluticasone/Salmeterol (Advair Diskus 250/50) 1 puff IH RBID [facility] - Labs Labs: 02/07/17 07:52 02/07/17 07:52
--- NOTE | 2017-02-07 21:51 | PN ---
DATE: 02/06/2017 SUBJECTIVE: She was started on Zosyn, day #2, treating left lower lobe pneumonia. PHYSICAL EXAMINATION: VITAL SIGNS: Blood pressure was 116/70, temperature 98.6, respiratory rate 20 and pulse is 67. HEENT: Pupils equal, reactive to light. Normal appearing mucosa of the conjunctivae. NECK: Supple. No JVD. No carotid bruit. No lymph node. No thyromegaly. CHEST AND LUNGS: Bilateral symmetrical expansion. Good air exchange. No rales. No rhonchi. CARDIOVASCULAR: PMI not localized. S1 and S2. No additional sounds. ABDOMEN: Normoactive bowel sounds. No tenderness. No organomegaly. No masses. EXTREMITIES: No cyanosis. No clubbing. No edema. ACCOUNT SERVICES COORDINATOR: Alert, awake, and oriented x3. No neurological deficits could be appreciated. ASSESSMENT: 1. Postoperative left lower lobe pneumonia. 2. Status post right total hip replacement. 3. Hypertension. 4. Osteoarthritis. PLAN: Continue current IV antibiotics and current medications. Encourage incentive spirometry and nebulizer treatment as needed. Reagan Ziegler MD
[2017-02-08] MEDS: Piperacillin/Tazobact 3.375 GM in Sodium Chloride 100 ML IVPB SCH ×4 (00:03→17:34)
--- NOTE | 2017-02-08 00:22 | PN ---
DATE: 02/07/2017 SUBJECTIVE: The patient is seen today, 02/07/2017. She is not in any cardiac pulmonary distress. The patient is on Zosyn day #3. PHYSICAL EXAMINATION VITAL SIGNS: Blood pressure 118/64, temperature 98.1, respiratory rate 20 and pulse 62. HEENT: Pupils equal, reactive to light. Normal appearing mucosa of the conjunctivae, oropharynx and nasal membrane mucosa. NECK: Supple. No JVD. No carotid bruit. No lymph node. No thyromegaly. CHEST AND LUNGS: Bilateral symmetrical expansion. Good air exchange. No rales. No rhonchi. CARDIOVASCULAR SYSTEM: PMI not localized. S1 and S2. No additional sounds. ABDOMEN: Normoactive bowel sounds. No tenderness. No organomegaly. No masses. EXTREMITIES: No cyanosis. No clubbing. No edema. CENTRAL NERVOUS SYSTEM: Alert, awake, and oriented x3. No neurological deficits could be appreciated. ASSESSMENT: 1. Nosocomial pneumonia. 2. Status post right total hip replacement. 3. Hypertension. 4. Osteoarthritis. PLAN: Continue current medication and IV antibiotics. Discussed with Dr. Perez. Reagan Ziegler MD
[2017-02-08] MEDS: Pantoprazole 40 mg EC Tab PO SCH (10:22)
[2017-02-08] MEDS: Potassium Chloride 10 mEq ER Tab PO SCH (10:22)
[2017-02-09] MEDS: Piperacillin/Tazobact 3.375 GM in Sodium Chloride 100 ML IVPB SCH ×3 (00:24→13:06)
[2017-02-09 08:02] VITALS: BP 124/72; PULSE 71; RESP 18; TEMP 98.9; O2SAT 98
[2017-02-09] MEDS: Pantoprazole 40 mg EC Tab PO SCH (09:28)
[2017-02-09] MEDS: Potassium Chloride 10 mEq ER Tab PO SCH (09:29)
[2017-02-09 11:22] LABS: HEMATOCRIT 26.4 % (34.0-47.0); MEAN CELL VOLUME 89.6 fL (81.0-99.0); MEAN CORPUSCULAR HEMOGLOBIN 29.9 pg (27.0-31.0); MEAN CORPUSCULAR HGB CONC 33.4 g/dL (33.0-37.0); MEAN PLATELET VOLUME 9.4 fL (7.2-11.7); RED CELL DISTRIBUTION WIDTH 13.4 % (11.5-14.5)
--- NOTE | 2017-02-09 11:25 | CP.PCM.PN ---
Subjective - Date & Time of Evaluation Date of Evaluation: 02/09/17 Time of Evaluation: 11:22 - Subjective Subjective: Patient says hip pain is under control. Denies CP?SOB/dizziness/dysuria/ frequency Objective - Vital Signs/Intake and Output Vital Signs (last 24 hours): Temp Pulse Resp BP Pulse Ox 98.9 F 71 18 124/72 98 02/09/17 07:25 02/09/17 07:25 02/09/17 07:25 02/09/17 09:28 02/09/17 07:25 - Medications Medications: Current Medications Acetaminophen (Tylenol 325mg Tab) 650 mg PO Q4 PRN PRN Reason: Fever 101 degrees fahrenheit Last Admin: 02/05/17 00:16 Dose: 650 mg Bisacodyl (Dulcolax) 10 mg PO HS PRN PRN Reason: Constipation Clonidine HCl (Catapres) 0.1 mg PO TID [facility] Last Admin: 02/09/17 09:29 Dose: 0.1 mg Docusate Sodium (Colace) 100 mg PO BID [facility] Last Admin: 02/09/17 09:29 Dose: 100 mg Ergocalciferol (Drisdol 50,000 Intl Units Cap) 1 cap PO QWK [facility] Folic Acid (Folic Acid) 1 mg PO DAILY [facility] Last Admin: 02/09/17 09:29 Dose: 1 mg Furosemide (Lasix) 40 mg PO DAILY [facility] Last Admin: 02/09/17 09:28 Dose: 40 mg Piperacillin Sod/Tazobactam (Sod 3.375 gm/ Sodium Chloride) 100 mls @ 100 mls/ hr IVPB Q6H [facility] Last Admin: 02/09/17 05:49 Dose: 100 mls/hr Losartan Potassium (Cozaar) 100 mg PO DAILY [facility] Last Admin: 02/09/17 09:30 Dose: 100 mg Ondansetron HCl (Zofran Inj) 4 mg IVP Q6H PRN PRN Reason: Nausea/Vomiting Pantoprazole Sodium (Protonix Ec Tab) 40 mg PO DAILY [facility] Last Admin: 02/09/17 09:28 Dose: 40 mg Potassium Chloride (Klor-Con 10) 10 meq PO DAILY [facility] Last Admin: 02/09/17 09:29 Dose: 10 meq Pramipexole Dihydrochloride (Mirapex) 0.25 mg PO TID [facility] Last Admin: 02/09/17 09:30 Dose: 0.25 mg Pregabalin (Lyrica) 75 mg PO TID [facility] Last Admin: 02/09/17 09:29 Dose: 75 mg Fluticasone/Salmeterol (Advair Diskus 250/50) 1 puff IH RBID [facility] - Labs Labs: 02/07/17 07:52 02/07/17 07:52 - Extremities Exam Additional comments: RLE: dressing changed. Noted sig serous drainage, incision intact, no active drainage, no erythema, intact. New sterile dressing applied. +ROM ankle/toes, sensation itnact, +DP/PT pulses calves soft NT neg homans Assessment and Plan (1) Degenerative joint disease of right hip Assessment & Plan: POD# 6 s/p right hip THR -noted pneumonia and UTI post operatively -urine cx neg (specimen taken after antibiotics started) -blood cx neg -WBC normalized, but today back up to13 -afebrile -due to drainage and fact that patient is lower risk for VTE, no history, mobile , will d/c eliquis and start aspirin 325mg PO BID as acceptable alternative for VTE proph as per Dr. Perez -medical f/u Status: Acute (2) HTN (hypertension) Status: Chronic (3) COPD (chronic obstructive pulmonary disease) Status: Chronic (4) CAROL (obstructive sleep apnea) Status: Chronic (5) GERD (gastroesophageal reflux disease) Status: Chronic (6) UTI (urinary tract infection) Status: Acute
[2017-02-09 11:29] LABS: CHLORIDE 99 mmol/L (98-107); SODIUM 135 mmol/L (132-148)
[2017-02-09 11:30] LABS: POTASSIUM 3.4 mmol/L (3.6-5.2)
[2017-02-09 11:32] LABS: GFR AFRICAN-AMERICAN > 60
[2017-02-09 11:33] LABS: BLOOD UREA NITROGEN 9 mg/dL (7-17); CALCIUM 8.8 mg/dl (8.6-10.4); CARBON DIOXIDE 28 mmol/L (22-30); GLUCOSE,RANDOM 124 mg/dL (65-105)
[2017-02-09] MEDS ORDERED: Potassium Chloride 20 mEq ER Tab PO ONE (12:04)
--- NOTE | 2017-02-09 13:22 | CP.PCM.DIS ---
Provider - Provider Date of Admission: 02/03/17 06:00 Attending physician: Jv Perez MD Time Spent in preparation of Discharge (in minutes): 5 Diagnosis - Discharge Diagnosis (1) Degenerative joint disease of right hip Status: Acute (2) HTN (hypertension) Status: Chronic (3) COPD (chronic obstructive pulmonary disease) Status: Chronic (4) CAROL (obstructive sleep apnea) Status: Chronic (5) GERD (gastroesophageal reflux disease) Status: Chronic (6) UTI (urinary tract infection) Status: Acute (7) Pneumonia Status: Acute Comment: cont PO antibiotics (8) Acute blood loss anemia Status: Acute Hospital Course - Lab Results Lab Results: Micro Results 02/05/17 10:30 Blood Blood Culture - Preliminary NO GROWTH AFTER 4 DAYS 02/05/17 10:30 Blood Blood Culture - Preliminary NO GROWTH AFTER 3 DAYS 02/04/17 16:06 Urine Urine Culture - Final No Growth (<1,000 CFU/ML) Most Recent Lab Values WBC 13.0 K/uL (4.8-10.8) H 02/09/17 11:11 RBC 2.95 Mil/uL (3.80-5.20) L 02/09/17 11:11 Hgb 8.8 g/dL (11.0-16.0) L 02/09/17 11:11 Hct 26.4 % (34.0-47.0) L 02/09/17 11:11 MCV 89.6 fL (81.0-99.0) 02/09/17 11:11 MCH 29.9 pg (27.0-31.0) 02/09/17 11:11 MCHC 33.4 g/dL (33.0-37.0) 02/09/17 11:11 RDW 13.4 % (11.5-14.5) 02/09/17 11:11 Plt Count 345 K/uL (130-400) 02/09/17 11:11 MPV 9.4 fL (7.2-11.7) 02/09/17 11:11 Neut % (Auto) 70.4 % (50.0-75.0) 02/07/17 07:52 Lymph % (Auto) 15.8 % (20.0-40.0) L 02/07/17 07:52 [place] % (Auto) 8.3 % (0.0-10.0) 02/07/17 07:52 Eos % (Auto) 5.2 % (0.0-4.0) H 02/07/17 07:52 Baso % (Auto) 0.3 % (0.0-2.0) 02/07/17 07:52 Neut # 7.3 K/uL (1.8-7.0) H 02/07/17 07:52 Lymph # 1.6 K/uL (1.0-4.3) 02/07/17 07:52 [place] # 0.9 K/uL (0.0-0.8) H 02/07/17 07:52 Eos # 0.5 K/uL (0.0-0.7) 02/07/17 07:52 Baso # 0.0 K/uL (0.0-0.2) 02/07/17 07:52 Neutrophils % (Manual) 90 % (50-75) H 02/06/17 06:30 Lymphocytes % (Manual) 8 % (20-40) L 02/06/17 06:30 Monocytes % (Manual) 2 % (0-10) 02/06/17 06:30 Platelet Estimate Normal (NORMAL) 02/06/17 06:30 Giant Platelets Present 02/06/17 06:30 Sodium 135 mmol/L (132-148) 02/09/17 11:11 Potassium 3.4 mmol/L (3.6-5.2) L 02/09/17 11:11 Chloride 99 mmol/L (98-107) 02/09/17 11:11 Carbon Dioxide 28 mmol/L (22-30) 02/09/17 11:11 Anion Gap 11 (10-20) 02/09/17 11:11 BUN 9 mg/dL (7-17) 02/09/17 11:11 Creatinine 0.7 mg/dL (0.7-1.2) 02/09/17 11:11 Est GFR ( Amer) > 60 02/09/17 11:11 Est GFR (Non-Af Amer) > 60 02/09/17 11:11 Random Glucose 124 mg/dL (65-105) H 02/09/17 11:11 Calcium 8.8 mg/dl (8.6-10.4) 02/09/17 11:11 25-OH Vitamin D Total 59.0 NG/ML (30.0-100.0) 02/04/17 11:45 Urine Color Yellow (YELLOW) 02/05/17 16:55 Urine Clarity Hazy (Clear) 02/05/17 16:55 Urine pH 5.0 (5.0-8.0) 02/05/17 16:55 Ur Specific [place] 1.016 (1.003-1.030) 02/05/17 16:55 Urine Protein Negative mg/dL (NEGATIVE) 02/05/17 16:55 Urine Glucose (UA) Normal mg/dL (Normal) 02/05/17 16:55 Urine Ketones Trace mg/dL (NEGATIVE) 02/05/17 16:55 Urine Blood 1+ (NEGATIVE) H 02/05/17 16:55 Urine Nitrate Negative (NEGATIVE) 02/05/17 16:55 Urine Bilirubin Negative (NEGATIVE) 02/05/17 16:55 Urine Urobilinogen Normal mg/dL (0.2-1.0) 02/05/17 16:55 Ur Leukocyte Esterase 3+ Rudy/uL (Negative) H 02/05/17 16:55 Urine WBC (Auto) 35 /hpf (0-5) H 02/05/17 16:55 Urine RBC (Auto) 5 /hpf (0-3) H 02/05/17 16:55 Ur Squamous Epith Cells 9 /hpf (0-5) H 02/05/17 16:55 Ur Transition Epith Cell < 1 /hpf (0-3) 02/05/17 16:55 Urine Bacteria Occ (<OCC) H 02/05/17 16:55 Blood Type O POSITIVE 02/03/17 07:08 Antibody Screen Negative 02/03/17 07:08 - Hospital Course Hospital Course: 61F with PMH: HTN, DM, GERD, CAROL with right hip osteoarthritis failed conservative management and elected for THR. Postoperative imaging demonstrated acceptable position of prosthesis. Medical consultation was requested for post operative medical management. HTN controlled throughout admission. Patient developed leukocytosis and fever POD#1 and was found to have LLL pneumonia and UTI as well. She was treated with zosyn as inpatient and responded well. blood cultures were negative. Urine cx taken after antibiotics also negative. Patients post operative course was complicated by acute blood loss anemia, hemodynamically stable and well tolerated, no treatment needed. Patient tolerated PT/OT well. Patient received VTE prophylaxis in the form of lovenox 40mg SQ q24h and venodynes. Patient also instructed to continue with hip abduction pillow and posterior hip precautions. Patient was changed to eliquis 2.5mg PO BID in anticipation of d/c home, which was later changed to ASA 325mg PO BID per Dr. Perez as alternative VTE proph. Patient was discharged home, home PT was arranged, continued on home medications as well as omnicef, florastor, and aspirin. Patient instructed on daily dressing changes, and to f/u 02/[address] Perez, call for appointment. Discharge Plan - Discharge Medications Prescriptions: Aspirin 325 mg PO Q12H #60 tab Cefdinir [Omnicef] 300 mg PO BID #14 cap Saccharomyces Boulardi [Florastor] 250 mg PO BID #14 cap - Follow Up Plan Condition: GOOD Disposition: HOME/ ROUTINE Instructions: COPD (Chronic Obstructive Pulmonary Disease) (DC), Hypertension ( DC) Referrals: Jv Perez MD [Staff Provider] - 02/12/17 (dressing change daily hip precautions home PT f/u Dr. Perez 02/12/17 call for appointment)
[2017-02-09] MEDS ORDERED: Piperacill/Tazo 3.375gm in Dex 3.375 GM/50 ML BAG IVPB SCH (19:00)
--- NOTE | 2017-02-09 22:28 | PN ---
DATE: 02/09/2017 SUBJECTIVE: The patent was seen today on, 02/09/2017. She is not in any cardiopulmonary distress. PHYSICAL EXAMINATION: VITAL SIGNS: Blood pressure is 124/72, temperature 98.9, respiratory rate 18 and pulse 71. HEENT: Pupils equal and reactive to light. Normal appearing mucosa of the conjunctivae, oropharynx and nasal membrane mucosa. NECK: Supple. No JVD. No carotid bruit. No lymph node. No thyromegaly. CHEST AND LUNGS: Bilateral symmetrical expansion. Good air exchange. No rales. No rhonchi. CARDIOVASCULAR SYSTEM: PMI not localized. S1 and S2. No additional sounds. ABDOMEN: Normoactive bowel sounds. No tenderness. No organomegaly. No masses. EXTREMITIES: No cyanosis. No clubbing. No edema. CENTRAL NERVOUS SYSTEM: Alert, awake, and oriented x3. No neurological deficits could be appreciated. ASSESSMENT AND PLAN: Nosocomial pneumonia status post right total hip replacement, hypertension, osteoarthritis. PLAN: The patient is cleared for discharge. To follow with her primary care physician and Dr. Perez. To continue Omnicef 300 mg twice a day for five more days. Reagan Ziegler MD
[2017-02-10] MEDS ORDERED: Ergocalciferol 50,000 Intl Units Cap PO SCH (10:00)
== END 2017-02-09 15:30 | disposition home or self-care (01) | DRG 469 ==
LOC: C.9S 06:00 → C.6T 13:38
PROVIDERS: ADMIT Orthopaedic Surgery; ATTEND Orthopaedic Surgery
PROC: 0SR902A Replacement of Right Hip Joint with Metal on Polyethylene Synthetic Substitute, Uncemented, Open Approach (ICD-10-PCS; principal; 2017-02-03 07:55)
DX: M16.11 Unilateral primary osteoarthritis, right hip (principal); J18.9 Pneumonia, unspecified organism; N39.0 Urinary tract infection, site not specified; D62 Acute posthemorrhagic anemia; I10 Essential (primary) hypertension; G47.33 Obstructive sleep apnea (adult) (pediatric); G25.81 Restless legs syndrome; M06.9 Rheumatoid arthritis, unspecified; K21.9 Gastro-esophageal reflux disease without esophagitis; E11.9 Type 2 diabetes mellitus without complications; J44.9 Chronic obstructive pulmonary disease, unspecified